=== PATIENT | male | born 1950 | race American Indian/Alaskan Native ===

== ENCOUNTER 2018-08-11 16:17 | Inpatient (IN) | payer MEDICARE, MEDICAID ==
[~2018-08-11] VITALS: Ht 193 cm; Wt 95.0 kg
[2018-08-11 17:59] LABS: BASOPHILS % (AUTO) 0.1 % (0-1); EOSINOPHILS % (AUTO) 0.1 % (0-6); LYMPHOCYTES # (AUTO) 0.9 X10'3 (1.1-4.8); LYMPHOCYTES % (AUTO) 40.2 % (21-51); MEAN CORPUSCULAR HEMOGLOBIN 30.3 PG (27.0-31.0); MEAN CORPUSCULAR HGB CONC 33.6 g/dL (33.0-36.5); MEAN CORPUSCULAR VOLUME 90.3 FL (78-98); MONOCYTES # (AUTO) 0.1 X10'3 (0-0.9); MONOCYTES % (AUTO) 5.1 % (2-12); NEUTROPHILS # (AUTO) 1.2 X10'3 (1.8-7.7); NEUTROPHILS % (AUTO) 54.5 % (42-75); RED BLOOD COUNT 1.93 X10'6 (4.70-6.10); RED CELL DISTRIBUTION WIDTH 20.1 % (11.5-14.5)
[2018-08-11 18:05] LABS: INR 1.1 INR; PARTIAL THROMBOPLASTIN TIME 30 SECONDS (22-32); PROTHROMBIN TIME 10.7 SECONDS (9.0-12.0)
--- NOTE | 2018-08-11 18:06 | NUR ---
TOOK PT'S VS SINCE HE'S BEEN IN WAITING ROOM MORE THAN 1 HOUR
[2018-08-11 18:08] LABS: HEMATOCRIT 17.4 % (42.0-52.0); HEMOGLOBIN 5.9 g/dl (14.0-17.9); WHITE BLOOD COUNT 2.1 X10'3 (4.5-11.0)
[2018-08-11 18:09] LABS: ALANINE AMINOTRANSFERASE 17 U/L (12-78); ALBUMIN 2.8 G/DL (3.4-5.0); ALKALINE PHOSPHATASE 68 IU/L (46-116); ANION GAP 7 (8-16); CHLORIDE 87 MMOL/L (99-107); CREATININE 1.22 MG/DL (0.60-1.10); PLATELET COUNT 31 X10'3 (140-440); POTASSIUM 3.5 MMOL/L (3.5-5.1); eGFR 60 ML/MIN
[2018-08-11 18:10] LABS: ALBUMIN/GLOBULIN RATIO 0.6 (1.1-1.5); ASPARTATE AMINO TRANSFERASE 10 U/L (10-37); BILIRUBIN,TOTAL 0.8 MG/DL (0.1-1.0); BLOOD UREA NITROGEN 23 MG/DL (7-18); BUN/CREATININE RATIO 18.9 (5.4-32.0); CALCIUM 8.1 MG/DL (8.5-10.1); GLUCOSE 131 MG/DL (70-104); TOTAL PROTEIN 7.6 G/DL (6.4-8.2)
[2018-08-11 18:12] LABS: SODIUM 120 MMOL/L (135-145); TOTAL CELLS COUNTED 100
[2018-08-11 18:13] LABS: ANISOCYTOSIS 2+; PLATELET ESTIMATE DECREASED; POLYCHROMASIA 1+; ROULEAUX 1+
[2018-08-11 18:14] LABS: ELLIPTOCYTES FEW; TEAR DROP CELLS FEW
[2018-08-11] MEDS ORDERED: normal saline 1000ml 1,000 ML IV SCH (20:08)
[2018-08-11] MEDS ORDERED: magnesium Cl slow-release 64mg tablet PO PRN (20:10)
[2018-08-11] MEDS ORDERED: potassium Cl 40MEQ/NS 500ml 500 ML IV PRN ×2 (20:10)
[2018-08-11] MEDS ORDERED: ondansetron/PF 4mg/2ml inj IV PRN (20:10)
[2018-08-11] MEDS ORDERED: magnesium 4gm in 100ml NS 100 ML IV PRN (20:10)
[2018-08-11] MEDS ORDERED: acetaminophen 325mg tablet PO PRN (20:10)
[2018-08-11] MEDS ORDERED: magnesium 2GM in 50ml NS 50 ML IV PRN (20:10)
[2018-08-11] MEDS ORDERED: potassium Cl 20 mEq SR tablet PO PRN ×2 (20:10)
--- NOTE | 2018-08-11 21:50 | NUR ---
I have received report from Amador BRADY and had the opportunity to ask questions and assume patient care. Awaiting pt arrival.
[2018-08-11 22:10] VITALS: BP 116/68
[2018-08-11 22:42] LABS: OCCULT BLOOD STOOL NEGATIVE (Neg)
[2018-08-11 23:18] VITALS: BP 107/66
[2018-08-11 23:34] VITALS: BP 110/63
--- NOTE | 2018-08-11 23:54 | NUR ---
pt has a pocket knife and wrench labelled and at nurse stations.
[2018-08-12] VITALS (19 sets, daily range): BP systolic 101–138; BP diastolic 54–82
[2018-08-12 02:08] LABS: ALBUMIN 2.4 G/DL (3.4-5.0); ANION GAP 6 (8-16); BLOOD UREA NITROGEN 22 MG/DL (7-18); CALCIUM 7.7 MG/DL (8.5-10.1); CHLORIDE 104 MMOL/L (99-107); POTASSIUM 3.9 MMOL/L (3.5-5.1); SODIUM 136 MMOL/L (135-145); TOTAL CARBON DIOXIDE 25.9 MMOL/L (24-32); eGFR 67 ML/MIN
[2018-08-12 02:10] LABS: GLUCOSE 126 MG/DL (70-104)
[2018-08-12 05:05] LABS: ALBUMIN 2.3 G/DL (3.4-5.0); ANION GAP 8 (8-16); BLOOD UREA NITROGEN 22 MG/DL (7-18); BUN/CREATININE RATIO 22.4 (5.4-32.0); CHLORIDE 103 MMOL/L (99-107); CREATININE 0.98 MG/DL (0.60-1.10); MAGNESIUM 1.9 MG/DL (1.5-2.4); SODIUM 136 MMOL/L (135-145); TOTAL CARBON DIOXIDE 24.7 MMOL/L (24-32); eGFR 77 ML/MIN
[2018-08-12 05:07] LABS: GLUCOSE 107 MG/DL (70-104)
[2018-08-12 05:18] LABS: BASOPHILS % (AUTO) 0.4 % (0-1); EOSINOPHILS % (AUTO) 0.5 % (0-6); LYMPHOCYTES # (AUTO) 0.6 X10'3 (1.1-4.8); LYMPHOCYTES % (AUTO) 39.1 % (21-51); MEAN CORPUSCULAR HEMOGLOBIN 31.4 PG (27.0-31.0); MEAN CORPUSCULAR HGB CONC 34.5 g/dL (33.0-36.5); MEAN CORPUSCULAR VOLUME 90.9 FL (78-98); MEAN PLATELET VOLUME 8.3 FL (7.4-10.4); MONOCYTES # (AUTO) 0.1 X10'3 (0-0.9); MONOCYTES % (AUTO) 8.2 % (2-12); NEUTROPHILS # (AUTO) 0.7 X10'3 (1.8-7.7); NEUTROPHILS % (AUTO) 51.8 % (42-75); RED BLOOD COUNT 1.87 X10'6 (4.70-6.10); RED CELL DISTRIBUTION WIDTH 17.5 % (11.5-14.5); WHITE BLOOD COUNT 1.4 X10'3 (4.5-11.0)
[2018-08-12 06:09] LABS: HEMOGLOBIN 5.9 g/dl (14.0-17.9)
[2018-08-12 06:10] LABS: PLATELET COUNT 20 X10'3 (140-440)
--- NOTE | 2018-08-12 06:31 | NUR ---
Problems reprioritized. Patient report given, questions answered & plan of care reviewed with Keri BRADY.
--- NOTE | 2018-08-12 06:42 | NUR ---
Called Dr. Glasgow concerning critical values. H&H 5.9&17 plt 20. She stated that "nothing has changed, no new orders and to continue to monitor." made aware and no new orders.
[2018-08-12] MEDS ORDERED: FURO-150 PO (07:02)
[2018-08-12] MEDS ORDERED: ACET-2119 PO (07:03)
[2018-08-12] MEDS ORDERED: CYAN-19 PO (07:04)
[2018-08-12 07:42] LABS: TOTAL CELLS COUNTED 100
[2018-08-12 07:43] LABS: ANISOCYTOSIS 2+; PLATELET ESTIMATE DECREASED; SCHISTOCYTES FEW
[2018-08-12 07:44] LABS: HYPOCHROMASIA 1+; MICROCYTOSIS 1+
[2018-08-12 07:45] LABS: POLYCHROMASIA 1+; ROULEAUX 1+
[2018-08-12] MEDS ORDERED: K and/or MAG REPLACEMENT MC SCH (08:00)
[2018-08-12 09:16] LABS: BASOPHILS % (AUTO) 0.3 % (0-1); EOSINOPHILS % (AUTO) 0.4 % (0-6); LYMPHOCYTES # (AUTO) 0.5 X10'3 (1.1-4.8); LYMPHOCYTES % (AUTO) 34.1 % (21-51); MEAN CORPUSCULAR HEMOGLOBIN 31.5 PG (27.0-31.0); MEAN CORPUSCULAR HGB CONC 34.8 g/dL (33.0-36.5); MEAN CORPUSCULAR VOLUME 90.5 FL (78-98); MEAN PLATELET VOLUME 7.9 FL (7.4-10.4); MONOCYTES # (AUTO) 0.1 X10'3 (0-0.9); MONOCYTES % (AUTO) 6.4 % (2-12); NEUTROPHILS # (AUTO) 0.9 X10'3 (1.8-7.7); NEUTROPHILS % (AUTO) 58.8 % (42-75); RED BLOOD COUNT 2.11 X10'6 (4.70-6.10); RED CELL DISTRIBUTION WIDTH 17.6 % (11.5-14.5); WHITE BLOOD COUNT 1.5 X10'3 (4.5-11.0)
[2018-08-12 09:20] LABS: HEMOGLOBIN 6.6 g/dl (14.0-17.9)
[2018-08-12 09:21] LABS: HEMATOCRIT 19.1 % (42.0-52.0); PLATELET COUNT 19 X10'3 (140-440)
--- NOTE | 2018-08-12 09:33 | NUR ---
A re-draw CBC was just obtained now since the am blood draw was done while pt. was receiving a blood transfusion. The results were reported to Dr. Bennett in person. Dr. Bennett stated the pt. needs to be somewhere where oncology can work him up.
--- NOTE | 2018-08-12 10:29 | NUR ---
Pt. left the floor to "take a walk" about 40" ago despite RN telling to to stay on floor/in room.
--- NOTE | 2018-08-12 10:37 | NUR ---
Pt. brought back into the room by resource nurse. Pt. asked to stay on nursing floor as he may need an acute transfer to a facility with oncology for further work up.
[2018-08-12 11:01] LABS: RED BLOOD COUNT 2.04 X10'6 (4.70-6.10); RETICULOCYTE % (AUTO) 1.6 % (0.5-1.5)
--- NOTE | 2018-08-12 13:54 | NUR ---
Sara grain merchandising manager stated pt. is willing to transfer to [facility] today for hematology/oncology referral/care. Sara stated she spoke with Juan at the transfer center and he will facilitate Dr. Bennett speaking with the accepting oncologist/print operator. Awaiting final decision re. pt's transfer.
[2018-08-12] MEDS ORDERED: OLAN2.5T3 PO (14:20)
[2018-08-12 15:35] LABS: BASOPHILS % (AUTO) 0.2 % (0-1); EOSINOPHILS % (AUTO) 0.3 % (0-6); LYMPHOCYTES # (AUTO) 0.5 X10'3 (1.1-4.8); LYMPHOCYTES % (AUTO) 31.3 % (21-51); MEAN CORPUSCULAR HEMOGLOBIN 31.7 PG (27.0-31.0); MEAN CORPUSCULAR HGB CONC 34.6 g/dL (33.0-36.5); MEAN CORPUSCULAR VOLUME 91.5 FL (78-98); MEAN PLATELET VOLUME 8.1 FL (7.4-10.4); MONOCYTES # (AUTO) 0.1 X10'3 (0-0.9); MONOCYTES % (AUTO) 8.1 % (2-12); NEUTROPHILS % (AUTO) 60.1 % (42-75); RED BLOOD COUNT 2.01 X10'6 (4.70-6.10); RED CELL DISTRIBUTION WIDTH 17.3 % (11.5-14.5); WHITE BLOOD COUNT 1.6 X10'3 (4.5-11.0)
[2018-08-12 15:38] LABS: HEMATOCRIT 18.4 % (42.0-52.0); HEMOGLOBIN 6.4 g/dl (14.0-17.9)
[2018-08-12 15:39] LABS: PLATELET COUNT 21 X10'3 (140-440)
--- NOTE | 2018-08-12 16:31 | NUR ---
Pt. to go to [facility] tomorrow for a bone marrow biopsy and then come back. Pt. to received 2 units PRBC today.
[2018-08-12] MEDS ORDERED: acetaminophen 325mg tablet PO ONE (16:50)
[2018-08-12] MEDS ORDERED: diphenhydrAMINE 50 mg/ml inj IV ONE (16:50)
--- NOTE | 2018-08-12 17:58 | NUR ---
Blood transfusion started after having to find pt. outside of the hospital despite RNs instruction to pt. to remain in room. Son at bedside.
--- NOTE | 2018-08-12 18:09 | NUR ---
Talon from transfer center called to inform RN that they are declining the transfer for tonight as [facility] has no beds. A new request must be made tomorrow. Charge nurse notified.
[2018-08-12] MEDS ORDERED: famotidine 20mg tablet PO SCH (21:00)
[2018-08-13] MEDS ORDERED: loratadine 10mg tablet PO SCH (08:00)
== END 2018-08-13 01:00 | disposition short-term general hospital (02) | DRG 809 ==
LOC: ER 16:18 → OBSVTOIN 20:08 → ED HOLD 20:08 → SUR 3N 22:00
PROVIDERS: ADMIT Internal Medicine; ATTEND Internal Medicine
PROC: 30233N1 Transfusion of Nonautologous Red Blood Cells into Peripheral Vein, Percutaneous Approach (ICD-10-PCS; principal; 2018-08-11)
PROC: 30233N1 Transfusion of Nonautologous Red Blood Cells into Peripheral Vein, Percutaneous Approach (ICD-10-PCS; 2018-08-12)
DX: D61.818 Other pancytopenia (principal); N17.9 Acute kidney failure, unspecified; E87.1 Hypo-osmolality and hyponatremia; R10.9 Unspecified abdominal pain; B18.2 Chronic viral hepatitis C; K76.89 Other specified diseases of liver; I10 Essential (primary) hypertension; F12.90 Cannabis use, unspecified, uncomplicated; F17.210 Nicotine dependence, cigarettes, uncomplicated; R16.1 Splenomegaly, not elsewhere classified; Z88.0 Allergy status to penicillin; Z88.2 Allergy status to sulfonamides; Z88.6 Allergy status to analgesic agent; Z79.899 Other long term (current) drug therapy; Z59.0 Homelessness
CPT/HCPCS: 36415; 71045; 74176; 80048; 80053; 82272; 82728; 83010; 83540; 83550; 83615; 83735; 84443; 84484; 85025; 85045; 85610; 85730; 86885; 86900; 86901; 86920; 86945; 87070; 93005; 99285; G0378; J1200; J7030; P9016

== ENCOUNTER 2018-08-25 18:39 | Emergency (ER) | payer MEDICARE, MEDICAID ==
[~2018-08-25] VITALS: Ht 195.6 cm; Wt 96.5 kg
[~2018-08-25 18:39] MED LIST: ACET-2119 PO; CYAN-19 PO; FURO-150 PO; OLAN2.5T3 PO
[2018-08-25 18:51] VITALS: BP 137/87
[2018-08-25 21:01] LABS: LYMPHOCYTES # (AUTO) 0.9 X10'3 (1.1-4.8); MONOCYTES # (AUTO) 0.1 X10'3 (0-0.9); NEUTROPHILS # (AUTO) 0.5 X10'3 (1.8-7.7); WHITE BLOOD COUNT 1.5 X10'3 (4.5-11.0)
[2018-08-25 21:03] LABS: RED BLOOD COUNT 2.37 X10'6 (4.70-6.10)
[2018-08-25 21:07] LABS: ASPARTATE AMINO TRANSFERASE 15 U/L (10-37); BILIRUBIN,TOTAL 0.7 MG/DL (0.1-1.0); BLOOD UREA NITROGEN 33 MG/DL (7-18); CALCIUM 8.7 MG/DL (8.5-10.1); GLUCOSE 101 MG/DL (70-104); TOTAL PROTEIN 7.6 G/DL (6.4-8.2)
[2018-08-25 21:08] LABS: SODIUM 142 MMOL/L (135-145)
[2018-08-25 21:09] LABS: ALANINE AMINOTRANSFERASE 26 U/L (12-78); ALBUMIN 2.9 G/DL (3.4-5.0); ALBUMIN/GLOBULIN RATIO 0.6 (1.1-1.5); ALKALINE PHOSPHATASE 86 IU/L (46-116); ANION GAP 10 (8-16); BUN/CREATININE RATIO 27.3 (5.4-32.0); CHLORIDE 107 MMOL/L (99-107); CREATININE 1.21 MG/DL (0.60-1.10); POTASSIUM 4.1 MMOL/L (3.5-5.1); TOTAL CARBON DIOXIDE 24.6 MMOL/L (24-32); eGFR 60 ML/MIN
[2018-08-25 21:11] LABS: BASOPHILS % (AUTO) 0.4 % (0-1); EOSINOPHILS % (AUTO) 0.2 % (0-6); HEMOGLOBIN 7.5 g/dl (14.0-17.9); LYMPHOCYTES % (AUTO) 59.1 % (21-51); MEAN CORPUSCULAR HEMOGLOBIN 31.5 PG (27.0-31.0); MEAN CORPUSCULAR HGB CONC 34.8 g/dL (33.0-36.5); MEAN CORPUSCULAR VOLUME 90.6 FL (78-98); MEAN PLATELET VOLUME 8.6 FL (7.4-10.4); NEUTROPHILS % (AUTO) 33.3 % (42-75); PLATELET COUNT 56 X10'3 (140-440)
[2018-08-25 21:18] LABS: HEMATOCRIT 21.5 % (42.0-52.0)
[2018-08-26 00:58] LABS: TOTAL CELLS COUNTED 100
[2018-08-26 00:59] LABS: ANISOCYTOSIS 1+; PLATELET ESTIMATE DECREASED
== END 2018-08-25 21:56 | disposition home or self-care (01) ==
LOC: ER 18:39
DX: D53.9 Nutritional anemia, unspecified (principal); D61.818 Other pancytopenia; B18.2 Chronic viral hepatitis C; I10 Essential (primary) hypertension; F12.90 Cannabis use, unspecified, uncomplicated; Z88.0 Allergy status to penicillin; Z88.5 Allergy status to narcotic agent; Z88.2 Allergy status to sulfonamides; Z79.899 Other long term (current) drug therapy
CPT/HCPCS: 36415; 80053; 85025; 99284